=== PATIENT | female | born 1935 | race Caucasian/White ===

== ENCOUNTER 2017-06-25 14:10 | Outpatient (CLI) | payer MEDICARE | END 2017-06-25 14:11 | disposition home or self-care (01) | LOC: BICBD 14:10 | PROVIDERS: ATTEND Internal Medicine | DX: Z12.31 Encounter for screening mammogram for malignant neoplasm of breast (principal); Z13.820 Encounter for screening for osteoporosis; M81.0 Age-related osteoporosis without current pathological fracture; Z80.3 Family history of malignant neoplasm of breast | CPT/HCPCS: 77063; 77067; 77080 ==

== ENCOUNTER 2018-06-27 10:28 | Outpatient (CLI) | payer MEDICARE | END 2018-06-27 10:29 | disposition home or self-care (01) | LOC: BICMAMMO 10:28 | PROVIDERS: ATTEND Internal Medicine | DX: Z12.31 Encounter for screening mammogram for malignant neoplasm of breast (principal); Z80.3 Family history of malignant neoplasm of breast | CPT/HCPCS: 77063; 77067 ==

== ENCOUNTER 2019-05-26 17:10 | Emergency (ER) | payer MEDICARE ==
[2019-05-26] MEDS ORDERED: Oxymetazoline HCl 0.05% (30 ML BOT) NS SCH (19:00)
[2019-05-26 19:09] LABS: #Eosinphils 0.1 thou/uL (0.0-0.7); #Lymphocytes 2.6 thou/uL (1.20-3.40); #Monocytes 0.7 thou/uL (0.11-0.59); #Neutrophils 6.1 thou/uL (1.40-6.50); %Basophils 0.4 % (0.0-1.0); %Eosinophils 0.7 % (0.0-10.0); %Lymphocytes 27.9 % (21.0-51.0); %Monocytes 7.1 % (0.0-10.0); Hemoglobin 13.5 g/dL (12.0-16.0); Mean Corpuscular HGB CONC 34.2 g/dL (32.0-36.0); Mean Corpuscular Hemoglobin 31.1 pg (27.0-31.0); Mean Platelet Volume 8.8 fL (7.4-10.4); Platelet Count 142 thou/uL (130-400); RBC Distribution Width 12.2 % (11.5-14.5); Red Blood Cell (RBC) Count 4.35 mill/uL (4.20-5.40); White Blood Cell (WBC) Count 9.5 thou/uL (4.8-10.8)
[2019-05-26 19:15] LABS: INR-International Normal Ratio 1.3; Prothrombin Time 16.5 SEC (12.0-14.7)
[2019-05-26 19:16] LABS: PTT 30.7 SEC (22.9-36.1)
[2019-05-26] MEDS ORDERED: cloNIDine 0.1 MG TAB ONE (20:04)
== END 2019-05-26 21:34 | disposition home or self-care (01) ==
LOC: ERS 17:10
DX: D68.9 Coagulation defect, unspecified (principal); R04.0 Epistaxis; I16.0 Hypertensive urgency; E03.9 Hypothyroidism, unspecified; Z79.899 Other long term (current) drug therapy
CPT/HCPCS: 36415; 85025; 85610; 85730; 99283

== ENCOUNTER 2019-05-27 19:19 | Emergency (ER) | payer MEDICARE ==
[2019-05-27] MEDS ORDERED: cloNIDine 0.1 MG TAB ONE (20:11)
== END 2019-05-27 21:40 | disposition home or self-care (01) ==
LOC: ERS 19:19
DX: I10 Essential (primary) hypertension (principal); E03.9 Hypothyroidism, unspecified; I48.91 Unspecified atrial fibrillation; Z79.01 Long term (current) use of anticoagulants; Z79.899 Other long term (current) drug therapy
CPT/HCPCS: 99283

== ENCOUNTER 2019-07-28 08:49 | Outpatient (CLI) | payer MEDICARE ==
--- NOTE | 2019-07-28 09:27 | MMO ---
Bilateral MAMMO Bilat Screen [facility]. CLINICAL HISTORY: Patient is 84 years old and is seen for screening. The patient has the following family history of breast cancer: mother. The patient has no personal history of cancer. The patient has a history of right Excisional Biopsy in 1989 - benign and right Excisional Biopsy in 1986 - benign. VIEWS: The views performed were: bilateral craniocaudal with tomosynthesis and bilateral mediolateral oblique with tomosynthesis. FILMS COMPARED: The present examination has been compared to prior imaging studies performed at [facility] on 06/18/2015, 06/21/2016, 06/25/2017 and 06/27/2018. This study has been interpreted with the assistance of computer-aided detection. MAMMOGRAM FINDINGS: The breasts are almost entirely fat. There are no suspicious masses, suspicious calcifications, or new areas of architectural distortion. IMPRESSION: THERE IS NO MAMMOGRAPHIC EVIDENCE OF MALIGNANCY. A ROUTINE FOLLOW-UP MAMMOGRAM IN 1 YEAR IS RECOMMENDED. THE RESULTS OF THIS EXAM WERE SENT TO THE PATIENT. ACR BI-RADS Category 1 - Negative MAMMOGRAPHY NOTE: 1. A negative mammogram report should not delay a biopsy if a dominant of clinically suspicious mass is present. 2. Approximately 10% to 15% of breast cancers are not detected by mammography. 3. Adenosis and dense breasts may obscure an underlying neoplasm. Reported by: Masha BAH Electonically Signed: [id number]
== END 2019-07-28 08:50 | disposition home or self-care (01) ==
LOC: BICMAMMO 08:49
PROVIDERS: ATTEND Internal Medicine
DX: Z12.31 Encounter for screening mammogram for malignant neoplasm of breast (principal); Z80.3 Family history of malignant neoplasm of breast; Z91.89 Other specified personal risk factors, not elsewhere classified
CPT/HCPCS: 77063; 77067

== ENCOUNTER 2021-01-26 13:20 | Outpatient (CLI) | payer MEDICARE | END 2021-01-26 13:21 | disposition home or self-care (01) | LOC: BICMAMMO 13:20 | PROVIDERS: ATTEND Internal Medicine | DX: Z12.31 Encounter for screening mammogram for malignant neoplasm of breast (principal); Z80.3 Family history of malignant neoplasm of breast | CPT/HCPCS: 77063; 77067 ==

== ENCOUNTER 2023-11-15 10:57 | Outpatient (CLI) | payer MEDICARE | END 2023-11-15 10:58 | disposition home or self-care (01) | LOC: BICMAMMO 10:57 | PROVIDERS: ATTEND Internal Medicine | DX: Z12.31 Encounter for screening mammogram for malignant neoplasm of breast (principal); Z80.3 Family history of malignant neoplasm of breast; Z91.89 Other specified personal risk factors, not elsewhere classified | CPT/HCPCS: 77063; 77067 ==

== ENCOUNTER 2025-04-05 14:28 | Inpatient (IN) | payer MEDICARE, OTHER, SELFPAY ==
[2025-04-05 15:31] LABS: #Basophils 0.05 10x3/uL (0.0-0.2); #Eosinophils Less than 0.03 10x3/uL (0.0-0.7); #Monocytes 0.66 10x3/uL (0.11-0.59); #Neutrophils 7.00 10x3/uL (1.40-6.50); %Basophils 0.5 % (0.0-1.0); %Eosinophils 0.2 % (0.0-10.0); %Lymphocytes 22.3 % (21.0-51.0); %Monocytes 6.6 % (0.0-10.0); %Neutrophils 70.2 % (42.0-75.0); Hematocrit 40.7 % (36.0-47.0); Hemoglobin 13.5 g/dL (12.0-16.0); Mean Corpuscular Hemoglobin 29.8 pg (27.0-31.0); Mean Corpuscular Volume 89.8 fL (78.0-98.0); Platelet Count 143 10x3/uL (130-400); Red Blood Cell (RBC) Count 4.53 mill/uL (4.20-5.40); White Blood Cell (WBC) Count 9.97 10x3/uL (4.8-10.8)
[2025-04-05 15:48] LABS: ALT (SGPT) 38 U/L (Less than 34); AST (SGOT) 49 U/L (11-34); Albumin 4.0 g/dL (3.1-4.5); Alkaline Phosphatase 64 U/L (40-110); Anion Gap 14 mmol/L (10-20); BUN (Urea Nitrogen) 17 mg/dL (9.8-20.1); Bilirubin, Total 0.7 mg/dL (0.3-1.2); Calc. Creatinine Clearance 0 mL/min (70-130); Calcium 9.1 mg/dL (7.8-10.44); Carbon Dioxide 24 mmol/L (23-31); Chloride 99 mmol/L (98-107); Globulin 3.8 g/dL (2.4-3.5); Glucose 206 mg/dL (83-110); Potassium 3.8 mmol/L (3.5-5.1); Sodium 133 mmol/L (136-145)
[2025-04-05 15:49] LABS: INR-International Normal Ratio 1.1; Prothrombin Time 14.3 sec (12.0-14.7)
[2025-04-05 15:50] LABS: PTT 26.8 sec (22.9-36.1)
[2025-04-05] MEDS ORDERED: Acetaminophen 325 MG TAB PO PRN (16:34)
[2025-04-05] MEDS ORDERED: Melatonin 3 MG TAB PO PRN (16:34)
[2025-04-05] MEDS ORDERED: hydrALAZINE 20 MG/ML VIAL SLOW IVP PRN (16:34)
[2025-04-05] MEDS ORDERED: Senokot S 8.6-50 MG TAB PO PRN (16:34)
[2025-04-05 20:00] VITALS: BMI 19.1
[2025-04-05] MEDS ORDERED: Apixaban 2.5 MG TAB PO SCH (21:00)
[2025-04-05] MEDS ORDERED: Polyethylene Glycol OPTH DROP 15 ML BOT EA EYE SCH (21:00)
[2025-04-05] MEDS: SYSTANE 0.3-0.4% EYE DROPS (30 ML) EA EYE SCH (21:51)
[2025-04-05] MEDS: PNEUMOC 20-VAL CONJ-DIP CRM/PF 0.5 ML SYRINGE IM ONE (21:57)
[2025-04-06 04:54] LABS: Anion Gap 14 mmol/L (10-20); BUN (Urea Nitrogen) 12 mg/dL (9.8-20.1); Calc. Creatinine Clearance 42 mL/min (70-130); Calcium 8.8 mg/dL (7.8-10.44); Carbon Dioxide 25 mmol/L (23-31); Cardiac Risk 3.6 (Less than 4.5); Chloride 101 mmol/L (98-107); Cholesterol 171 mg/dl (< 200 Desired); Glucose 94 mg/dL (83-110); HDL Cholesterol 47 mg/dL (>60 Neg Risk); LDL Cholesterol, Calculated 113 mg/dL; Potassium 3.6 mmol/L (3.5-5.1); Sodium 136 mmol/L (136-145); Triglycerides 57 mg/dL (Less than 150)
[2025-04-06 04:57] LABS: #Basophils 0.06 10x3/uL (0.0-0.2); #Eosinophils 0.17 10x3/uL (0.0-0.7); #Monocytes 1.18 10x3/uL (0.11-0.59); #Neutrophils 5.66 10x3/uL (1.40-6.50); %Basophils 0.6 % (0.0-1.0); %Eosinophils 1.6 % (0.0-10.0); %Lymphocytes 32.6 % (21.0-51.0); %Monocytes 11.2 % (0.0-10.0); %Neutrophils 53.8 % (42.0-75.0); Hematocrit 39.2 % (36.0-47.0); Hemoglobin 13.1 g/dL (12.0-16.0); Mean Corpuscular Hemoglobin 29.4 pg (27.0-31.0); Mean Corpuscular Volume 87.9 fL (78.0-98.0); Platelet Count 129 10x3/uL (130-400); Red Blood Cell (RBC) Count 4.46 mill/uL (4.20-5.40); White Blood Cell (WBC) Count 10.52 10x3/uL (4.8-10.8)
[2025-04-06] MEDS: Aspirin 81 mg Enteric Coated Tablet PO SCH (09:10)
[2025-04-06 14:22] VITALS: BMI 19.1
[2025-04-07 03:59] LABS: #Basophils 0.08 10x3/uL (0.0-0.2); #Eosinophils 0.29 10x3/uL (0.0-0.7); #Monocytes 1.08 10x3/uL (0.11-0.59); #Neutrophils 5.21 10x3/uL (1.40-6.50); %Basophils 0.7 % (0.0-1.0); %Eosinophils 2.7 % (0.0-10.0); %Lymphocytes 38.3 % (21.0-51.0); %Monocytes 10.0 % (0.0-10.0); %Neutrophils 48.1 % (42.0-75.0); Hematocrit 40.1 % (36.0-47.0); Hemoglobin 13.8 g/dL (12.0-16.0); Mean Corpuscular Hemoglobin 30.0 pg (27.0-31.0); Mean Corpuscular Volume 87.2 fL (78.0-98.0); Platelet Count 125 10x3/uL (130-400); Red Blood Cell (RBC) Count 4.60 mill/uL (4.20-5.40); White Blood Cell (WBC) Count 10.83 10x3/uL (4.8-10.8)
[2025-04-07 04:09] LABS: Anion Gap 14 mmol/L (10-20); BUN (Urea Nitrogen) 16 mg/dL (9.8-20.1); Calc. Creatinine Clearance 36 mL/min (70-130); Calcium 8.9 mg/dL (7.8-10.44); Carbon Dioxide 23 mmol/L (23-31); Chloride 103 mmol/L (98-107); Glucose 97 mg/dL (83-110); Potassium 3.5 mmol/L (3.5-5.1); Sodium 136 mmol/L (136-145)
[2025-04-08 03:55] LABS: #Basophils 0.04 10x3/uL (0.0-0.2); #Eosinophils 0.35 10x3/uL (0.0-0.7); #Monocytes 1.15 10x3/uL (0.11-0.59); #Neutrophils 5.37 10x3/uL (1.40-6.50); %Basophils 0.4 % (0.0-1.0); %Eosinophils 3.3 % (0.0-10.0); %Lymphocytes 34.9 % (21.0-51.0); %Monocytes 10.8 % (0.0-10.0); %Neutrophils 50.4 % (42.0-75.0); Hematocrit 39.8 % (36.0-47.0); Hemoglobin 13.5 g/dL (12.0-16.0); Mean Corpuscular Hemoglobin 29.7 pg (27.0-31.0); Mean Corpuscular Volume 87.5 fL (78.0-98.0); Platelet Count 133 10x3/uL (130-400); Red Blood Cell (RBC) Count 4.55 mill/uL (4.20-5.40); White Blood Cell (WBC) Count 10.65 10x3/uL (4.8-10.8)
[2025-04-08 04:06] LABS: Anion Gap 14 mmol/L (10-20); BUN (Urea Nitrogen) 25 mg/dL (9.8-20.1); Calc. Creatinine Clearance 32 mL/min (70-130); Calcium 9.7 mg/dL (7.8-10.44); Carbon Dioxide 24 mmol/L (23-31); Chloride 101 mmol/L (98-107); Glucose 98 mg/dL (83-110); Potassium 4.1 mmol/L (3.5-5.1); Sodium 135 mmol/L (136-145)
[2025-04-08] MEDS: Lisinopril 5 MG TAB PO SCH (20:44)
[2025-04-09] MEDS: Metoprolol Succinate XL 25 MG ER.TAB PO SCH (09:43)
[2025-04-10] MEDS: Enoxaparin 60 MG (0.6 mL) SYRINGE SC SCH (17:47)
[2025-04-10] MEDS: Rosuvastatin 20 MG TAB PO SCH (21:54)
[2025-04-11] MEDS: Enoxaparin 60 MG (0.6 mL) SYRINGE SC SCH (10:47)
[2025-04-13] MEDS: Apixaban 2.5 MG TAB PO SCH (20:35)
[2025-04-14 03:53] LABS: #Basophils 0.07 10x3/uL (0.0-0.2); #Eosinophils 0.31 10x3/uL (0.0-0.7); #Monocytes 1.04 10x3/uL (0.11-0.59); #Neutrophils 4.48 10x3/uL (1.40-6.50); %Basophils 0.8 % (0.0-1.0); %Eosinophils 3.3 % (0.0-10.0); %Lymphocytes 36.4 % (21.0-51.0); %Monocytes 11.2 % (0.0-10.0); %Neutrophils 48.1 % (42.0-75.0); Hematocrit 41.4 % (36.0-47.0); Hemoglobin 13.7 g/dL (12.0-16.0); Mean Corpuscular Hemoglobin 29.3 pg (27.0-31.0); Mean Corpuscular Volume 88.5 fL (78.0-98.0); Platelet Count 127 10x3/uL (130-400); Red Blood Cell (RBC) Count 4.68 mill/uL (4.20-5.40); White Blood Cell (WBC) Count 9.31 10x3/uL (4.8-10.8)
[2025-04-14 04:07] LABS: ALT (SGPT) 25 U/L (Less than 34); AST (SGOT) 47 U/L (11-34); Albumin 3.5 g/dL (3.1-4.5); Alkaline Phosphatase 48 U/L (40-110); Anion Gap 12 mmol/L (10-20); BUN (Urea Nitrogen) 25 mg/dL (9.8-20.1); Bilirubin, Total 0.6 mg/dL (0.3-1.2); Calc. Creatinine Clearance 40 mL/min (70-130); Calcium 9.1 mg/dL (7.8-10.44); Carbon Dioxide 26 mmol/L (23-31); Chloride 104 mmol/L (98-107); Globulin 3.5 g/dL (2.4-3.5); Glucose 100 mg/dL (83-110); Potassium 3.5 mmol/L (3.5-5.1); Sodium 138 mmol/L (136-145)
[2025-04-14] MEDS ORDERED: Potassium Chloride 20 MEQ in Premix 1 BAG IVPB PRN (10:15)
[2025-04-14] MEDS ORDERED: Electrolyte Replacement Protocol 1 EACH FS SCH (10:15)
[2025-04-14] MEDS ORDERED: PHOS-NAK 1 PKT PACK PO PRN (10:15)
[2025-04-14] MEDS ORDERED: Magnesium 2 GM/50 ML(in water) 2 GM in Premix 1 BAG IVPB PRN (10:15)
[2025-04-14 16:15] VITALS: BP 145/93; TEMP 97.9
== END 2025-04-14 21:17 | DRG 65 ==
LOC: ERS 14:28 → 2SE 16:53
PROVIDERS: ADMIT Internal Medicine; ATTEND Internal Medicine
PROC: 3E02340 Introduction of Influenza Vaccine into Muscle, Percutaneous Approach (ICD-10-PCS; 2025-04-05)
PROC: 4A00X4Z Measurement of Central Nervous Electrical Activity, External Approach (ICD-10-PCS; principal; 2025-04-06)
DX: I63.432 Cerebral infarction due to embolism of left posterior cerebral artery (principal); G81.91 Hemiplegia, unspecified affecting right dominant side; I48.21 Permanent atrial fibrillation; I48.92 Unspecified atrial flutter; I63.442 Cerebral infarction due to embolism of left cerebellar artery; R47.01 Aphasia; I10 Essential (primary) hypertension; E03.9 Hypothyroidism, unspecified; E78.5 Hyperlipidemia, unspecified; R29.701 NIHSS score 1; Z23 Encounter for immunization; Z88.0 Allergy status to penicillin; Z90.49 Acquired absence of other specified parts of digestive tract; Z79.01 Long term (current) use of anticoagulants; Z90.710 Acquired absence of both cervix and uterus; Z98.890 Other specified postprocedural states; Z98.42 Cataract extraction status, left eye; Z79.899 Other long term (current) drug therapy; Z79.890 Hormone replacement therapy; Z79.82 Long term (current) use of aspirin; S00.81XA Abrasion of other part of head, initial encounter; R47.1 Dysarthria and anarthria; R13.12 Dysphagia, oropharyngeal phase; R29.810 Facial weakness; W19.XXXA Unspecified fall, initial encounter; R29.703 NIHSS score 3
CPT/HCPCS: 36415; 36416; 70450; 70551; 71045; 74230; 80048; 80053; 80061; 84484; 85025; 85610; 85730; 93005; 93306; 93880; 94760; 95700; 95711; 95957; J1650